=== PATIENT | female | born 1940 | race Caucasian/White ===

== ENCOUNTER → 2019-05-21 | Day surgery (SDC) | payer MEDICARE ==
[2019-05-16 10:39] LABS: BASOPHILS # (AUTO) 0.1 (0.0-0.1); BASOPHILS % 1.5 % (0.0-1.0); EOSINOPHILS # (AUTO) 0.1 (0.0-0.4); EOSINOPHILS % 1.5 % (0.0-6.0); HEMATOCRIT 35.1 % (34.2-44.1); HEMOGLOBIN 10.9 g/dL (12.0-16.0); LYMPHOCYTES # (AUTO) 1.7 (1.0-3.2); MEAN CORPUSCULAR HEMOGLOBIN 29.7 pg (28-32); MEAN CORPUSCULAR HGB CONC 31.1 g/dL (31-35); MEAN CORPUSCULAR VOLUME 95.6 fL (81-99); MONOCYTES # (AUTO) 0.7 (0.2-0.8); MONOCYTES % 8.6 % (4.4-11.3); NEUTROPHILS # (AUTO) 5.7 (2.1-6.9); NEUTROPHILS % 67.6 % (38.7-80.0); PLATELET COUNT 194 x10e3/uL (140-360); RED BLOOD COUNT 3.67 x10e6/uL (3.6-5.1); RED CELL DISTRIBUTION WIDTH 13.5 % (11.7-14.4)
[~2019-05-21] MED LIST: AMIODORONE PO; ASPIR 8181 MG PO; CREON DR 24,001 EACH PO; FENTANYL CITRATE/PF 100MCG/2 ML INJ ONE; FIBER PO; HYOSCYAMINE SULFATE 0.5 MG/ML INJ ONE; LOSARTAN PO; METOCLOPRAMIDE HCL 10 MG/2ML VIAL ONE; MIDAZOLAM HCL 2 MG/2 ML VIAL ONE; PROPOFOL IV EMULSION 10 MG/ML 50 ML VIAL ONE; VITAMIN D1000 UNI1 PO; VITAMIN D31000 UNIT PO; Z.0.CALTRATE 600 +1 PO; Z.0.MULTIVITAMINS1 E PO; Z.0.SIMVASTATIN5 MG; Z.0.SIMVASTATIN5 MG PO; [UNRECOGNIZED DRUG - OTHER] PO
--- OUTSIDE RECORDS SUMMARY | 2019-05-21 10:01 | XMS REPORT ---
[facility] Address Unknown Phone Unavailable Care Team Providers Care Electric Operator Name Role Phone Unavailable Unavailable Payers Payer Name Policy Type Policy Number Effective Date Expiration Date Problems This patient has no known problems. Allergies, Adverse Reactions, Alerts Allergy Name Allergy Type Status Severity Reaction(s) Onset Date Inactive Date Treating Clinician Comments No Known Allergies DA Active U 2015-10-01 00:00:00 Medications This patient has no known medications. Encounters Start Date/Time End Date/Time Encounter Type Admission Type Attending Clinicians Care Facility Care Department Encounter ID 2018-01-12 15:53:27 2018-01-12 15:53:27 Outpatient [facility] [id number] Results Test Description Test Time Test Comments Text Results Atomic Results Result Comments BREAST ULTRASOUND BILATERAL 2018-10-07 13:28:51 - BREAST ULTRASOUND BILATERALULTRASOUND OF BOTH BREASTS AND BOTH AXILLA: 10/07/2018CLINICAL: Followup to previous exam. Comparison is made to exams dated 10/02/2017 ultrasound, 02/11/2016 ultrasound, and 02/12/2015 ultrasound - [facility]-. Real-time ultrasound of both breasts and both axilla was performed. There is an stable benign 8 mm oval nodule in the left breast at 12 o'clock, 4 cm from the nipple. Color flow imaging demonstrates that there is no increase in vascularity. No abnormalities were seen sonographically in either axilla. Clinical breast exam was unremarkable.IMPRESSION: BENIGN - FOLLOW-UP RECOMMENDEDThere is no sonographic evidence of malignancy. A follow-up ultrasound in 12 months is recommended. Claire Billings M.D. dm/:10/07/2018 13:28:51 Entry: lc - 10/11/2018 08:27:34Imaging Technologist: Hollie LONDON, [facility]-FWletter sent: BIRADS 1-2 Normal Ultrasound BI-RADS: 2 Benign
--- NOTE | 2019-05-21 14:52 | Operative Report ---
DATE OF PROCEDURE: 05/21/2019 SURGEON: Kye Hassan MD PROCEDURE: Colonoscopy with polypectomy. INDICATIONS FOR COLONOSCOPY: Surveillance colonoscopy, personal history of colon polyps. MEDICATIONS: The patient was done under MAC, please see anesthesiologist's note. PROCEDURE IN DETAIL: With the patient in left lateral decubitus position, flexible fiberoptic Olympus colonoscope was inserted into the rectum with ease and advanced all the way to the cecum. Prep overall was suboptimal with retained stools in the colon. The scope was then withdrawn slowly and approximately 1.5 cm sessile flat lesion was noted in the cecum and that was partially resected per snare electrocautery and site was hemoclipped x2. One minute polyp was removed per cold biopsy forceps and it bled transiently so that was also hemoclipped with excellent hemostasis. The rest of the ascending, transverse, descending, sigmoid, there was some patchy diverticular disease involvement with retained stools, but no obvious obstructing or constricting lesions. The scope was then retroflexed into the distal rectum and small internal hemorrhoids were noted, none of which was actively bleeding. The scope was then straightened out, it was subsequently withdrawn. The patient tolerated the procedure well. IMPRESSION: 1. Suboptimal prep. 2. Cecal polyp approximately 1.5 cm sessile, flat, partially resected per snare electrocautery, hemoclipped x2. 3. Minute polyp, ascending colon, removed per cold biopsy forceps and hemoclipped x1. 4. Diverticulosis. 5. Internal hemorrhoids, none actively bleeding. PLAN: Follow up histology. Initiate high-fiber, low-fat diet. Initiate high-fiber supplement. Florastor one p.o. b.i.d. Timing of followup colonoscopy pending pathology report. If lesion from cecum was benign, then the patient might benefit from a followup colonoscopy in six months due to the suboptimal prep. Kye Hassan MD [facility] [place]/MELINA /[id number] cc: Lupillo Young MD
[2019-05-21 16:00] VITALS: BP 141/79
== END | disposition home or self-care (01) ==
LOC: OR 09:58
PROVIDERS: ATTEND Internal Medicine Gastroenterology
DX: K59.00 Constipation, unspecified (principal); K63.5 Polyp of colon; Z01.812 Encounter for preprocedural laboratory examination; K57.30 Diverticulosis of large intestine without perforation or abscess without bleeding; K64.8 Other hemorrhoids; R12 Heartburn; I10 Essential (primary) hypertension; I48.91 Unspecified atrial fibrillation; I48.92 Unspecified atrial flutter; Z79.82 Long term (current) use of aspirin; Z68.1 Body mass index [BMI] 19.9 or less, adult; Z90.49 Acquired absence of other specified parts of digestive tract; Z85.3 Personal history of malignant neoplasm of breast; Z85.07 Personal history of malignant neoplasm of pancreas; Z80.0 Family history of malignant neoplasm of digestive organs
CPT/HCPCS: 36415; 45380; 45385; 85025; 88305; 93005; J1980; J2250; J2704; J2765; J3010; 45378; 45384

== ENCOUNTER 2022-05-02 11:43 | Emergency (ER) | payer MEDICARE, OTHER ==
[~2022-05-02] VITALS: Ht 170.2 cm; Wt 42.7 kg
[~2022-05-02 11:43] MED LIST changes: -FENTANYL CITRATE/PF 100MCG/2 ML INJ ONE; -HYOSCYAMINE SULFATE 0.5 MG/ML INJ ONE; -METOCLOPRAMIDE HCL 10 MG/2ML VIAL ONE; -MIDAZOLAM HCL 2 MG/2 ML VIAL ONE; -PROPOFOL IV EMULSION 10 MG/ML 50 ML VIAL ONE
[2022-05-02] MEDS ORDERED: FEROSUL325 MG PO (12:19)
[2022-05-02] MEDS ORDERED: IBANDRONATE SO150 MG (12:19)
[2022-05-02] MEDS ORDERED: TASIGNA150 MG (12:19)
[2022-05-02] MEDS ORDERED: TRASTUZUMAB (12:19)
[2022-05-02] MEDS ORDERED: IOPAMIDOL 370 MG/ML 100 ML INFUS..BTL INJ ONE (13:31)
== END 2022-05-02 15:14 | disposition home or self-care (01) ==
LOC: FSED 11:47
DX: R10.32 Left lower quadrant pain (principal); R19.7 Diarrhea, unspecified; R63.4 Abnormal weight loss; I10 Essential (primary) hypertension; E78.5 Hyperlipidemia, unspecified; Z85.3 Personal history of malignant neoplasm of breast; Z85.07 Personal history of malignant neoplasm of pancreas
CPT/HCPCS: 74177; 80048; 80076; 81003; 85025; 99284; Q9967

== ENCOUNTER 2022-07-12 17:51 | Emergency (ER) | payer MEDICARE ==
[~2022-07-12] VITALS: Ht 167.6 cm; Wt 46.3 kg
[~2022-07-12 17:51] MED LIST changes: +FEROSUL325 MG PO; +IBANDRONATE SO150 MG; +TASIGNA150 MG; +TRASTUZUMAB
[2022-07-12] MEDS ORDERED: BENZONATATE100 MG PO (18:56)
== END 2022-07-12 19:33 | disposition home or self-care (01) ==
LOC: FSED 18:19
DX: R05.9 Cough, unspecified (principal); J06.9 Acute upper respiratory infection, unspecified; I10 Essential (primary) hypertension; E78.5 Hyperlipidemia, unspecified; Z85.3 Personal history of malignant neoplasm of breast
CPT/HCPCS: 71046; 99283

== ENCOUNTER 2025-01-03 15:25 | Inpatient (IN) | payer MEDICARE ==
[~2025-01-03] VITALS: Ht 167.6 cm; Wt 46.3 kg
[2025-01-03 15:25] VITALS: TEMP 98.8
[~2025-01-03 15:25] MED LIST changes: +BENZONATATE100 MG PO
[2025-01-03 15:54] LABS: BASOPHILS % 0.3 % (0.0-1.0); EOSINOPHILS # (AUTO) 0.1 (0.0-0.4); EOSINOPHILS % 0.7 % (0.0-6.0); HEMATOCRIT 31.4 % (34.2-44.1); HEMOGLOBIN 10.1 g/dL (12.0-16.0); LYMPHOCYTES # (AUTO) 2.7 (1.0-3.2); LYMPHOCYTES % 20.1 % (18.0-39.1); MEAN CORPUSCULAR HEMOGLOBIN 31.9 pg (28-32); MEAN CORPUSCULAR HGB CONC 32.2 g/dL (31-35); MEAN CORPUSCULAR VOLUME 99.1 fL (81-99); MONOCYTES # (AUTO) 0.5 (0.2-0.8); NEUTROPHILS # (AUTO) 10.1 (2.1-6.9); NEUTROPHILS % 74.4 % (38.7-80.0); PLATELET COUNT 309 x10e3/uL (140-360); RED BLOOD COUNT 3.17 x10e6/uL (3.6-5.1); RED CELL DISTRIBUTION WIDTH 14.2 % (11.7-14.4); WHITE BLOOD COUNT 13.61 x10e3/uL (4.8-10.8)
[2025-01-03 16:10] LABS: INR 1.15; PARTIAL THROMBOPLASTIN TIME 28.4 seconds (23.8-35.5); PROTHROMBIN TIME 15.4 seconds (11.9-14.5)
[2025-01-03 16:11] LABS: INFLUENZA A AG NEGATIVE (NEGATIVE); INFLUENZA B AG NEGATIVE (NEGATIVE)
[2025-01-03 16:12] LABS: CORONAVIRUS COVID-19 AG NEGATIVE (NEGATIVE)
[2025-01-03 16:21] LABS: ALBUMIN 3.3 g/dL (3.5-5.0); ALBUMIN/GLOBULIN RATIO 1.1 (0.8-2.0); ANION GAP 14.1 mmol/L (8-16); BILIRUBIN,TOTAL 0.7 mg/dL (0.2-1.2); CALCIUM 8.5 mg/dL (8.4-10.2); CREATININE, SERUM 0.86 mg/dL (0.57-1.11); MAGNESIUM 1.9 MG/DL (1.3-2.1); TOTAL PROTEIN 6.2 g/dL (6.5-8.1)
[2025-01-03 16:26] LABS: POTASSIUM 3.1 mmol/L (3.5-5.1); TROPONIN I 0.024 ng/mL (0-0.300)
[2025-01-03] MEDS: ONDANSETRON HCL INJ 2MG/ML 2ML 2 MG/ML VIAL IV STA (16:40)
[2025-01-03] MEDS: SODIUM CHLORIDE 0.9% 1000ML 1,000 ML IV STA (16:42)
[2025-01-03] MEDS ORDERED: IOPAMIDOL 370 MG/ML 100 ML INFUS..BTL INJ ONE (17:35)
[2025-01-03] MEDS ORDERED: ACETAMINOPHEN 325 MG TAB PO PRN (18:15)
[2025-01-03] MEDS ORDERED: NITROGLYCERIN 0.4 MG SUBL SL PRN (18:15)
[2025-01-03 18:40] VITALS: PULSE 106; RESP 18; O2SAT 97
[2025-01-03 19:10] VITALS: PULSE 101; RESP 18
[2025-01-03] MEDS: ASPIRIN 81 MG CHEW TAB PO STA (19:39)
[2025-01-03] MEDS: SODIUM CHLORIDE 0.9% 1000ML 1,000 ML IV ONE (19:39)
[2025-01-03 20:12] VITALS: BP 133/63; PULSE 101; RESP 19; TEMP 98.7; O2SAT 100
[2025-01-03 21:15] VITALS: BP 133/63; PULSE 101; RESP 19; TEMP 98.7; O2SAT 100
[2025-01-04] VITALS (10 sets, daily range): BP systolic 89–115; BP diastolic 42–59; PULSE 68–106; RESP 15–20; TEMP 97.9–98.8; O2SAT 93–100
[2025-01-04] MEDS ORDERED: ACETAMINOPHEN 325 MG TAB PO PRN (00:45)
[2025-01-04] MEDS ORDERED: DEXTROSE 50% SYRINGE 50 ML IV PRN (00:45)
[2025-01-04] MEDS ORDERED: DOCUSATE SODIUM 100 MG CAP PO PRN (00:45)
[2025-01-04] MEDS ORDERED: HYDRALAZINE HCL 20 MG/ML VIAL IV PRN (00:45)
[2025-01-04] MEDS ORDERED: MELATONIN 5 MG TABLET PO PRN (00:45)
[2025-01-04] MEDS ORDERED: LIDOCAINE 4% PATCH TP PRN (00:45)
[2025-01-04] MEDS ORDERED: BENZONATATE 100 MG CAP PO PRN (00:45)
[2025-01-04] MEDS ORDERED: DIPHENHYDRAMINE HCL 25 MG CAP PO PRN (00:45)
[2025-01-04] MEDS ORDERED: SIMETHICONE 80 MG CHEW PO PRN (00:45)
[2025-01-04] MEDS ORDERED: ALBUTEROL/IPRATROPIUM 3 ML NEB NEB PRN (00:45)
[2025-01-04 01:44] LABS: ANION GAP 11.2 mmol/L (8-16); CALCIUM 7.5 mg/dL (8.4-10.2); CREATININE, SERUM 0.8 mg/dL (0.57-1.11); MAGNESIUM 1.5 MG/DL (1.3-2.1)
[2025-01-04 01:47] LABS: POTASSIUM 3.2 mmol/L (3.5-5.1)
[2025-01-04 01:50] LABS: TROPONIN I 0.061 ng/mL (0-0.300)
[2025-01-04 02:46] LABS: THYROID STIMULATING HORMONE 0.525 uIU/mL (0.350-4.940)
[2025-01-04] MEDS ORDERED: GLEEVEC400 MG PO (03:26)
[2025-01-04] MEDS: ONDANSETRON HCL INJ 2MG/ML 2ML 2 MG/ML VIAL IV PRN (04:24)
[2025-01-04 06:39] LABS: BASOPHILS % 0.1 % (0.0-1.0); HEMATOCRIT 25.1 % (34.2-44.1); HEMOGLOBIN 8.2 g/dL (12.0-16.0); LYMPHOCYTES # (AUTO) 0.4 (1.0-3.2); LYMPHOCYTES % 2.7 % (18.0-39.1); MEAN CORPUSCULAR HEMOGLOBIN 32.5 pg (28-32); MEAN CORPUSCULAR HGB CONC 32.7 g/dL (31-35); MEAN CORPUSCULAR VOLUME 99.6 fL (81-99); MONOCYTES # (AUTO) 0.9 (0.2-0.8); NEUTROPHILS # (AUTO) 13.2 (2.1-6.9); NEUTROPHILS % 90.1 % (38.7-80.0); PLATELET COUNT 156 x10e3/uL (140-360); RED BLOOD COUNT 2.52 x10e6/uL (3.6-5.1); RED CELL DISTRIBUTION WIDTH 14.4 % (11.7-14.4)
[2025-01-04 07:24] LABS: ALBUMIN 2.5 g/dL (3.5-5.0); ANION GAP 11.3 mmol/L (8-16); BILIRUBIN,TOTAL 0.7 mg/dL (0.2-1.2); CALCIUM 7.6 mg/dL (8.4-10.2); CHOL/HDL RATIO 2.5 (3.0-3.6); CREATININE, SERUM 0.83 mg/dL (0.57-1.11); TOTAL PROTEIN 4.9 g/dL (6.5-8.1)
[2025-01-04 07:32] LABS: POTASSIUM 3.3 mmol/L (3.5-5.1)
[2025-01-04 07:36] LABS: TROPONIN I 0.108 ng/mL (0-0.300)
[2025-01-04] MEDS ORDERED: ASPIRIN 81 MG ENTERIC COATED PO SCH (09:00)
[2025-01-04] MEDS: POTASSIUM CHLORIDE 20 MEQ TAB CR PO PRN (11:05)
[2025-01-04] MEDS: ASPIRIN 81 MG CHEW TAB PO SCH (11:05)
[2025-01-04] MEDS ORDERED: AMIODARONE HCL 200 MG TAB PO SCH (12:15)
[2025-01-04] MEDS: MIDODRINE 2.5 MG TAB PO SCH (15:43)
[2025-01-04] MEDS: ENOXAPARIN SOD INJ 40 MG/0.4 ML SYR SC SCH (16:42)
[2025-01-04] MEDS: METOPROLOL SUCCINATE 25 MG TAB XL PO ONE ×2 (16:42→16:43)
[2025-01-04] MEDS: AMIODARONE HCL 200 MG TAB PO SCH (16:43)
[2025-01-04] MEDS ORDERED: MIDODRINE 2.5 MG TAB PO SCH (18:00)
[2025-01-04] MEDS: PROTEASE PO SCH (21:00)
[2025-01-04] MEDS: LIPASE PO SCH (21:00)
[2025-01-04] MEDS: [UNRECOGNIZED DRUG - OTHER] PO SCH (21:00)
[2025-01-04] MEDS: AMYLASE PO SCH (21:00)
[2025-01-05] VITALS (10 sets, daily range): BP systolic 94–112; BP diastolic 46–74; PULSE 57–87; RESP 17–18; TEMP 97.3–98.6; O2SAT 94–100
[2025-01-05] MEDS: MIDODRINE 2.5 MG TAB PO SCH (05:35)
[2025-01-05 06:36] LABS: INR 1.53; PROTHROMBIN TIME 19.2 seconds (11.9-14.5)
[2025-01-05] MEDS: FERROUS SULFATE 325 MG TAB PO SCH (08:54)
[2025-01-05] MEDS: METOPROLOL SUCCINATE 25 MG TAB XL PO SCH (08:54)
[2025-01-05 10:49] LABS: BODY FLUID APPEARANCE SL.CLOUDY; BODY FLUID COLOR YELLOW; BODY FLUID TYPE PLEURAL; WBC,BODY FLUID 412 cells/uL
[2025-01-05 10:50] LABS: RBC,BODY FLUID 2000 cells/uL
[2025-01-05 11:20] LABS: LYMPHOCYTES,BODY FLUID 36 %; MONO/MACROPHG,BODY FLUID 44 %; NEUTROPHILS,BODY FLUID 17 %; OTHER CELLS,BODY FLUID 3 %; TOTAL CELLS COUNTED (DIFF) 100
[2025-01-06 06:35] LABS: BASOPHILS % 0.8 % (0.0-1.0); EOSINOPHILS # (AUTO) 0.1 (0.0-0.4); EOSINOPHILS % 1.9 % (0.0-6.0); HEMATOCRIT 27.6 % (34.2-44.1); HEMOGLOBIN 8.6 g/dL (12.0-16.0); LYMPHOCYTES # (AUTO) 0.9 (1.0-3.2); LYMPHOCYTES % 17.1 % (18.0-39.1); MEAN CORPUSCULAR HGB CONC 31.2 g/dL (31-35); MEAN CORPUSCULAR VOLUME 102.6 fL (81-99); MONOCYTES # (AUTO) 0.5 (0.2-0.8); MONOCYTES % 8.9 % (4.4-11.3); NEUTROPHILS # (AUTO) 3.6 (2.1-6.9); NEUTROPHILS % 70.7 % (38.7-80.0); PLATELET COUNT 175 x10e3/uL (140-360); RED BLOOD COUNT 2.69 x10e6/uL (3.6-5.1); RED CELL DISTRIBUTION WIDTH 14.8 % (11.7-14.4); WHITE BLOOD COUNT 5.15 x10e3/uL (4.8-10.8)
[2025-01-06] MEDS: SODIUM CHLORIDE 0.9% 250ML 250 ML ONE (06:52)
[2025-01-06 07:06] LABS: CALCIUM 7.7 mg/dL (8.4-10.2); CREATININE, SERUM 0.85 mg/dL (0.57-1.11)
[2025-01-06 08:00] VITALS: BP_SYST 106; BP_SYST 124; BP_DIAS 54; BP_DIAS 65; PULSE 64; PULSE 68; RESP 18; TEMP 97.5; TEMP 98.5; O2SAT 97; O2SAT 99
[2025-01-06 09:25] VITALS: PULSE 89; RESP 18; O2SAT 99
[2025-01-06 11:41] VITALS: BP 126/55; PULSE 59; RESP 17; TEMP 98.5; O2SAT 100
[2025-01-06 15:51] VITALS: BP 132/78; PULSE 63; RESP 19; TEMP 97.4; O2SAT 100
[2025-01-06 19:13] LABS: TOTAL PROTEIN,BODY FLUID 2.6 g/dL
== END 2025-01-06 16:15 | disposition home or self-care (01) | DRG 180 ==
LOC: ER 15:31 → ERHOLD 18:18 → MED/SURG3 20:32 → OBSVTOIN 01-05 14:28
PROVIDERS: ADMIT Internal Medicine; ATTEND Internal Medicine
PROC: 0W993ZZ Drainage of Right Pleural Cavity, Percutaneous Approach (ICD-10-PCS; principal; 2025-01-05)
PROC: 0W9B3ZZ Drainage of Left Pleural Cavity, Percutaneous Approach (ICD-10-PCS; 2025-01-06)
DX: C34.12 Malignant neoplasm of upper lobe, left bronchus or lung (principal); J96.01 Acute respiratory failure with hypoxia; E44.0 Moderate protein-calorie malnutrition; R64 Cachexia; J91.8 Pleural effusion in other conditions classified elsewhere; I48.92 Unspecified atrial flutter; I10 Essential (primary) hypertension; I95.89 Other hypotension; I48.91 Unspecified atrial fibrillation; F41.9 Anxiety disorder, unspecified; E78.5 Hyperlipidemia, unspecified; R53.81 Other malaise; I49.3 Ventricular premature depolarization; R00.0 Tachycardia, unspecified; Z11.52 Encounter for screening for COVID-19; Z79.82 Long term (current) use of aspirin; Z92.21 Personal history of antineoplastic chemotherapy; Z85.3 Personal history of malignant neoplasm of breast; Z85.07 Personal history of malignant neoplasm of pancreas; Z90.11 Acquired absence of right breast and nipple; Z85.6 Personal history of leukemia; Z88.5 Allergy status to narcotic agent
CPT/HCPCS: 32555; 36415; 71045; 71260; 74470; 76604; 78580; 80048; 80053; 80061; 82150; 82550; 82945; 83036; 83615; 83690; 83735; 83880; 84157; 84443; 84484; 85025; 85379; 85610; 85730; 87070; 87086; 87205; 88112; 88305; 88342; 89051; 93005; 93306; 93970; 94799; 96361; 99252; 99284; A9540; C1729; G0378; J1650; J2405; J2470; J2543; J7030; J7050; Q9967